=== PATIENT | male | born 1990 | race Caucasian/White ===

== ENCOUNTER 2016-09-14 04:20 | Emergency (ER) | payer OTHER ==
[2016-09-14] MEDS ORDERED: RX INFO: IV CONTRAST WAS GIVEN 1 EACH MISC MISCELLANE PRN (04:25)
[2016-09-14] MEDS ORDERED: DIPH,PERTUS(ACELL)TETVAC-LF 0.5 ML VIAL IM ONE (04:28)
[2016-09-14] MEDS ORDERED: HYDROmorphone 1 MG/ML 1 ML SYRINGE IVP STA ×3 (04:28→07:49)
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
[2016-09-14 04:52] LABS: Basophils % (A) 0 %; CH 33.1; CHCM 36.3; Eosinophils # (A) 0.2 k/uL (0-0.7); Eosinophils % (A) 1 %; HCT 49.6 % (39.0-53.0); HDW 2.69; HGB 17.2 gm/dL (13.0-17.5); Luc # (Auto) 0.07; Luc % (Auto) 0; Lymphocytes # (A) 1.7 k/uL (1.0-4.8); Lymphocytes % (A) 11 %; MCH 31.8 pg (25.0-35.0); MCHC 34.8 g/dL (31.0-37.0); MCV 91.5 fL (80.0-100.0); Mean Platelet Volume 7.5; Monocytes # (A) 0.6 k/uL (0-1.0); Monocytes % (A) 4 %; Neutrophils # (A) 13.7 k/uL (1.3-7.7); Neutrophils % (A) 84 %; RBC 5.42 m/uL (4.30-5.90); RDW 12.9 % (11.5-15.5); WBC 16.3 k/uL (3.8-10.6); WBC (Perox) 16.74
[2016-09-14 05:01] LABS: Amylase 63 U/L (30-110); Anion Gap 16 mmol/L; Calcium 9.3 mg/dL (8.4-10.2); Carbon Dioxide 19 mmol/L (22-30); Chloride 110 mmol/L (98-107); Glucose 94 mg/dL (74-99); INR 1.1 (<1.1); Non-African American GFR(MDRD) >60 (>60 ml/min/1.73 sqM); Partial Thromboplastin Time 25.1 sec (22.0-30.0); Prothrombin Time 11.3 sec (9.0-12.0); Sodium 145 mmol/L (137-145); Total Bilirubin 0.8 mg/dL (0.2-1.3); Total Protein 7.9 g/dL (6.3-8.2)
[2016-09-14 05:05] LABS: Alcohol 142 mg/dL
[2016-09-14 05:08] LABS: ALT 45 U/L (21-72); AST 55 U/L (17-59); Alkaline Phosphatase 70 U/L (38-126); Blood Urea Nitrogen 10 mg/dL (9-20); Potassium 4.8 mmol/L (3.5-5.1)
[2016-09-14 05:10] LABS: Creatine Kinase 788 U/L (55-170)
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
[2016-09-14 05:23] LABS: Troponin I <0.012 ng/mL (0.000-0.034)
[2016-09-14 05:32] LABS: Appearance,Urine Clear (Clear); Bilirubin,Urine Negative (Negative); Glucose,Urine (UA) Negative (Negative); Ketones,Urine Negative (Negative); Leukocyte Esterase,Urine Negative (Negative); Mucus,Urine Rare /hpf; Nitrite,Urine Negative (Negative); Particle Count 1966; Protein,Urine Negative (Negative); RBC,Urine <1 /hpf (0-5); UA Billing (MACRO vs. MICRO) MICRO; Urobilinogen,Urine <2.0 mg/dL (<2.0); WBC,Urine 1 /hpf (0-5)
[2016-09-14 05:42] LABS: Creatine Kinase MB 3.7 ng/mL (0.0-2.4)
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
[2016-09-14] MEDS ORDERED: ceFAZolin 2 GM in SODIUM CHLORIDE 0.9% 100 ML IVPB STA (06:55)
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
[2016-09-14 09:49] VITALS: BP 159/75; PULSE 108; RESP 18; TEMP 99.1
--- NOTE | 2016-09-20 17:02 | XR ---
EXAMINATION TYPE: XR pelvis AP view DATE OF EXAM: 09/14/2016 7:30 AM COMPARISON: NONE HISTORY: Pain Case has been resubmitted for redictation. Original dictation was lost. The osseous structures are intact and the joint spaces are preserved. No acute fracture is seen. Vi sualized bowel gas pattern is nonspecific. IMPRESSION: 1. No acute fracture.
== END 2016-09-14 09:47 | disposition other institution (70) ==
LOC: EC 04:20
DX: S42.352A Displaced comminuted fracture of shaft of humerus, left arm, initial encounter for closed fracture (principal); V47.5XXA Car driver injured in collision with fixed or stationary object in traffic accident, initial encounter; F17.200 Nicotine dependence, unspecified, uncomplicated; J98.11 Atelectasis; Z23 Encounter for immunization
CPT/HCPCS: 99284; 96365; 96375; 96376 ×2; 36415; 93005; 86900; 86901; 80053; 82150; 82550; 82553; 83690; 84484; 85025; 85610; 85730; 86850; 81001; 80306; 80320; 71010; 72170; 73060; 73090; 72125; 70450; 71260; 74177; 90715; J0690; J1170; Q9967

== ENCOUNTER 2017-11-20 18:15 | Emergency (ER) | payer OTHER ==
[2017-11-20 18:24] VITALS: BP 163/85; PULSE 88; RESP 18; TEMP 98.1
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
--- NOTE | 2017-11-20 19:18 | XR ---
EXAMINATION TYPE: XR cervical spine comp DATE OF EXAM: 11/20/2017 COMPARISON: NONE HISTORY: Neck pain TECHNIQUE: 7 views FINDINGS: Cervical vertebra have normal alignment. Disc spaces are normal. Posterior elements are int act. The neuroforamina are widely patent. Atlantoaxial facet joint is normal. There are no cervical r ibs. IMPRESSION: Normal cervical spine. No fracture.
== END 2017-11-20 19:41 | disposition home or self-care (01) ==
LOC: EC 18:15
DX: M54.2 Cervicalgia (principal); F17.200 Nicotine dependence, unspecified, uncomplicated; W22.8XXA Striking against or struck by other objects, initial encounter; Y93.39 Activity, other involving climbing, rappelling and jumping off; Y92.89 Other specified places as the place of occurrence of the external cause
CPT/HCPCS: 72050; 99283